=== PATIENT | male | born 1945 | race Caucasian/White ===

== ENCOUNTER 2018-03-10 23:04 | Observation (INO) | payer MEDICARE, BC ==
[2018-03-10 23:18] LABS: BASO % 0.3 % (0-6); EOS % 2.8 % (0-6); GRAN % 51.5 % (47-80); HEMOGLOBIN 13.3 gm/dl (14.0-18.0); LYMPH % 31.3 % (16-45); MEAN CELL VOLUME 97.5 fl (81-97); MEAN CORPUSCULAR HEMOGLOBIN 33.2 pg (27-33); MEAN CORPUSCULAR HGB CONC 34.1 g/dl (32-36); MEAN PLATELET VOLUME 10.7 fl (7.4-10.4); MONO % 14.1 % (0-9); PLATELET COUNT 293 K/uL (130-400); RED CELL DISTRIBUTION WIDTH 12.9 % (11.5-14.5); WHITE BLOOD COUNT W/O DIFF 7.4 K/uL (4.2-12.2)
--- NOTE | 2018-03-10 23:23 | Emergency Department Record ---
History of Present Illness - General Chief Complaint: Arrythmia/Palpitations Stated Complaint: IRREGULAR HEARTBEAT Time Seen by Provider: 03/10/18 23:06 Source: Patient Mode of Arrival: Ambulatory Limitations: No limitations - History of Present Illness Initial Comments: 72 yo male presents to ED for evaluation of rapid heart rate, reports history of atrial fibrillation. Patient reports that he does take Metoprolol for his rate control, denies any change in his medication. Patient reports shortness of breath symptoms, denies chest pain symptoms. Patient does take Eliquis for anticoagulation. MD Complaint: Irregular heart beat Onset/Timin -: Hour(s) Context: Occurred during exertion Arrythmia History: Atrial fibrillation, On anti-coagulants Associated Symptoms: Other Treatments Prior to Arrival: Other - Related Data Home Medications Medication Instructions Recorded Confirmed Last Taken Insulin Degludec [Tresiba 60 unit SQ DAILY 03/10/18 03/10/18 03/10/18 Flextouch U-100] Allergies Allergy/AdvReac Type Severity Reaction Status Date / Time codeine AdvReac CONSTIPATIO Verified 08/21/16 01:42 N Travel Screening - Travel/Exposure Within Last 30 Days Have you traveled within the last 30 days?: No - Travel Symptoms Symptom Screening: None Review of Systems Constitutional: Denies: Chills, Fever, Malaise, Night sweats Eyes: Denies: Eye discharge, Eye pain ENT: Denies: Congestion, Ear pain, Epistaxis Respiratory: Denies: Cough, Dyspnea Cardiovascular: Reports: Arrhythmia, Dyspnea on exertion, Palpitations. Denies : Chest pain, Edema Endocrine: Denies: Fatigue, Heat or cold intolerance Gastrointestinal: Denies: Abdominal pain, Constipation, Vomiting Genitourinary: Denies: Incontinence, Retention Musculoskeletal: Denies: Arthralgia, Back pain, Gout, Joint swelling Skin: Denies: Bruising, Change in color Neurological: Denies: Abnormal gait, Confusion, Headache, Seizure Psychiatric: Denies: Anxiety Hematological/Lymphatic: Denies: Anemia, Blood Clots Past Medical History - SOCIAL HISTORY Smoking Status: Never smoker Alcohol Use: None Drug Use: None - RESPIRATORY Hx Respiratory Disorders: No - CARDIOVASCULAR Hx Cardio Disorders: Yes Hx Hypertension: Yes Hx Irregular Heartbeat: Yes (A-Fib) - NEURO Hx Neuro Disorders: No - GI Hx GI Disorders: No - Hx Genitourinary Disorders: Yes Hx Prostate Problems: Yes (BPH) - ENDOCRINE Hx Endocrine Disorders: Yes Hx Diabetes: Yes (DM2) - MUSCULOSKELETAL Hx Musculoskeletal Disorders: Yes Hx Gout: Yes - PSYCH Hx Psych Problems: No - HEMATOLOGY/ONCOLOGY Hx Hematology/Oncology Disorders: No Family Medical History Any Significant Family History?: Yes Hx Cancer: Brother/Sister *Cancer Comment: Colon,Prostate Hx Diabetes: Mother Hx Heart Disease: Father Physical Exam - General General Appearance: Alert, Oriented x3, Cooperative, Mild distress Limitations: No limitations - Head Head exam: Atraumatic, Normocephalic, Normal inspection Head exam detail: negative: Abrasion, Contusion, Catherine's sign, General tenderness, Hematoma, Laceration - Eye Eye exam: Normal appearance. negative: Conjunctival injection, Periorbital swelling, Periorbital tenderness, Scleral icterus - ENT Ear exam: negative: Auricular hematoma, Auricular trauma Nasal Exam: negative: Active bleeding, Discharge, Dried blood, Foreign body Mouth exam: negative: Drooling, Laceration, Tongue elevation - Neck Neck exam: Normal inspection. negative: Meningismus, Tenderness - Respiratory Respiratory exam: Normal lung sounds bilaterally. negative: Rales, Respiratory distress, Rhonchi, Stridor - Cardiovascular Cardiovascular Exam: Irregular rhythm, Tachycardia - GI/Abdominal GI/Abdominal exam: Soft. negative: Rebound, Rigid, Tenderness - Rectal Rectal exam: Deferred - exam: Deferred - Extremities Extremities exam: Normal inspection. negative: Calf tenderness, Pedal edema, Tenderness - Back Back exam: Denies: CVA tenderness (R), CVA tenderness (L) - Neurological Neurological exam: Alert, Normal gait, Oriented X3 - Psychiatric Psychiatric exam: Normal affect, Normal mood - Skin Skin exam: Normal color. negative: Abrasion Type of lesion: negative: abrasion Course Vital Signs 03/10/18 23:06 Temperature 98.3 F Pulse Rate 156 H Respiratory 20 Rate Blood Pressure 133/105 - Reevaluation(s) Reevaluation #1: 03/10/18 23:23 EKG: Atrial fibrillation 147 IVCD, nonspecific ST-T wave changes NEW BBB compared with 02/23/16 Reevaluation #2: 03/10/18 23:36 Labs reviewed: Hgb 13.3 AG 18 BUN 29 Glucose 284 Labs are otherwise grossly unremarkable for an acute process. Cardizem infusing at 5 mg/hr, rate improved to the 90's on re-examination. Will admit for further evaluation and cardiology consultation in AM. Reevaluation #3: 03/11/18 06:51 Case was discussed with Dr. Hall, will accept admission at this time. Medical Decision Making - Lab Data Result diagrams: 03/10/18 23:10 03/10/18 23:10 Disposition Disposition: Admit Clinical Impression: Atrial fibrillation with RVR Disposition: Still a Patient at [facility] Decision to Admit: Admit from ER Decision to Admit Date: 03/10/18 Decision to Admit Time: 23:39 Condition: (2) Stable Time of Disposition: 23:39 Quality - Quality Measures Quality Measures: N/A - Blood Pressure Screening Does Patient Have Any of the Following: Active Dx of HTN Blood Pressure Classification: Hypertensive Reading Systolic Measurement: 133 Diastolic Measurement: 105 Screening for High Blood Pressure: Patient Exclusion, Hx of HTN [[id number]] First Hypertensive Follow-up Interventions: Referral to alternative/primary care provider.
[2018-03-10 23:26] LABS: BLOOD UREA NITROGEN 29 mg/dL (8-23); EST GLOMERULAR FILTRATION RATE > 60 mL/min
[2018-03-10 23:27] LABS: TOTAL PROTEIN 7.7 g/dL (6.6-8.7)
[2018-03-10 23:29] LABS: GLUCOSE,RANDOM 284 mg/dL (74-109)
[2018-03-10] MEDS ORDERED: DILTIAZEM HCL 125 MG in 0.9 % SODIUM CHLORIDE 100ML 100 ML IV SCH (23:30)
[2018-03-10 23:32] LABS: ALB/GLOB RATIO 1.3 (1.1-1.8); ALBUMIN 4.4 g/dL (4.0-5.0); ALKALINE PHOSPHATASE 63 U/L (40-129); ALT/SGPT 21 U/L (<41); AST/SGOT 19 U/L (10.0-50.0)
[2018-03-10] MEDS ORDERED: 0.9 % SODIUM CHLORIDE 1000ML 1,000 ML IV PRN (23:44)
[2018-03-11] MEDS ORDERED: POLYVINYL ALCOHOL OPTH OPTH PRN (02:55)
[2018-03-11] MEDS ORDERED: METFORMIN 500 MG TABLET PO SCH (08:00)
--- NOTE | 2018-03-11 09:28 | History & Physical ---
History of Present Illness - Date of Service Date of Service for History & Physical: 03/11/18 - History of Present Illness Admitting Diagnosis: Atrial Fibrillation with RVR. Hyperglycemia History of Present Illness: Mr. Sandhu is a 72 y/o male with chronic atrial fibrillation here with complaint of tachycardia and intermittent palpitations over the past few days. The patient says that his heart rate is usually in the low 100s but he noticed that it jumped up to the 150s. He uses a home BP monitor and says that several readings showed a high heart rate. He is on metoprolol and anticoagulated with Eliquis which he says he takes daily. He has not had any change in dosing or additions to his medications in recent days. The patient denies, lightheadedness , chest pain, shortness of breath of fainting spells. On arrival to the ED the patient is noted to be in atrial fibrillation on monitor with a rate of around 130 and ECG showing atrial fibrillation with a rate of 150 and Qtc prolongation. The patient was started on Cardizem drip at 5mL/hr and returned to normal sinus. Cardiology was consulted and the patient was admitted for evaluation. Travel Screening - Travel/Exposure Within Last 30 Days Have you traveled within the last 30 days?: No - Travel/Exposure Within Last Year Have you traveled outside the [place] in the last year?: No - Additonal Travel Details Have you been exposed to anyone with a communicable illness?: No - Travel Symptoms Symptom Screening: None Review of Systems Constitutional: Denies: Chills, Fever, Malaise, Night sweats Eyes: Denies: Eye discharge, Eye pain ENT: Denies: Congestion, Ear pain, Epistaxis Respiratory: Denies: Cough, Dyspnea Cardiovascular: Reports: Arrhythmia, Dyspnea on exertion, Palpitations. Denies : Chest pain, Edema Endocrine: Denies: Fatigue, Heat or cold intolerance Gastrointestinal: Denies: Abdominal pain, Constipation, Vomiting Genitourinary: Denies: Incontinence, Retention Musculoskeletal: Denies: Arthralgia, Back pain, Gout, Joint swelling Skin: Denies: Bruising, Change in color Neurological: Denies: Abnormal gait, Confusion, Headache, Seizure Psychiatric: Denies: Anxiety Hematological/Lymphatic: Denies: Anemia, Blood Clots Past Medical History - SOCIAL HISTORY Smoking Status: Never smoker Alcohol Use: None Drug Use: None - RESPIRATORY Hx Respiratory Disorders: No - CARDIOVASCULAR Hx Cardio Disorders: Yes Hx Hypertension: Yes Hx Irregular Heartbeat: Yes (A-Fib) - NEURO Hx Neuro Disorders: No - GI Hx GI Disorders: No - Hx Genitourinary Disorders: Yes Hx Prostate Problems: Yes (BPH) - ENDOCRINE Hx Endocrine Disorders: Yes Hx Diabetes: Yes (DM2) - MUSCULOSKELETAL Hx Musculoskeletal Disorders: Yes Hx Gout: Yes - PSYCH Hx Psych Problems: No - HEMATOLOGY/ONCOLOGY Hx Hematology/Oncology Disorders: No Family Medical History Any Significant Family History?: Yes Hx Cancer: Brother/Sister *Cancer Comment: Colon,Prostate Hx Diabetes: Mother Hx Heart Disease: Father H&P Meds/Allergies - Allergies Allergies: Allergies Allergy/AdvReac Type Severity Reaction Status Date / Time codeine AdvReac CONSTIPATIO Verified 08/21/16 01:42 N - Home Medications Home Medications Medication Instructions Recorded Confirmed Last Taken Insulin Degludec [Tresiba 60 unit SQ DAILY 03/10/18 03/10/18 03/10/18 Flextouch U-100] - Active Medications Active Medications: Current Medications Allopurinol (Zyloprim) 300 mg PO DAILY [facility] Apixaban (Eliquis) 5 mg PO BID [facility] Artificial Tears (Akwa Tears) 1 drop OPTH Q1H PRN PRN Reason: Dry Eye Last Admin: 03/11/18 03:16 Dose: 1 drop Atorvastatin Calcium (Lipitor) 80 mg PO DAILY [facility] Diltiazem HCl 125 mg/ Sodium (Chloride) 125 mls @ 5 mls/hr IV TITRATE [facility]ANE; Protocol Last Titration: 03/11/18 08:36 Dose: Infused Sodium Chloride () 1,000 mls @ 100 mls/hr IV .Q10H PRN PRN Reason: LARGE VOLUME IV Last Admin: 03/10/18 23:30 Dose: 100 mls/hr Metformin HCl (Glucophage Ir) 1,000 mg PO BIDWM [facility]ANE Last Admin: 03/11/18 08:15 Dose: 1,000 mg Metoprolol Tartrate (Lopressor) 100 mg PO BID [facility] Non-Formulary Medication (Captopril/Hydrochlorothiazide [Captopril-Hctz 25-15 Mg Tablet]) 1 tab PO DAILY [facility] Non-Formulary Medication (Fenofibrate [Fenofibrate]) 160 mg PO [facility] Non-Formulary Medication (Fexofenadine Hcl [Elly Allergy]) 180 mg PO [facility] Non-Formulary Medication (Insulin Degludec [Tresiba Flextouch U-100]) 60 unit SQ [facility] Physical Exam - Vital Signs Vital Signs: Vital Signs - Last 24 Hrs Temp Pulse Pulse Pulse Resp BP BP 03/11/18 06:20 98.1 F 86 16 110/68 03/11/18 05:30 98.5 F 73 17 103/54 03/11/18 04:30 104 H 16 123/61 03/11/18 03:30 97.9 F 116 H 16 128/69 03/11/18 03:17 98.1 F 129 H 16 128/71 03/11/18 02:05 119 H 18 119/66 03/11/18 01:15 96 H 16 112/85 03/11/18 00:57 97 H 16 03/11/18 00:20 98.5 F 117 H 16 130/76 03/11/18 00:02 97 H 20 119/79 03/10/18 23:51 97 H 22 03/10/18 23:32 129 H 24 124/95 03/10/18 23:15 136 H 24 136/101 03/10/18 23:06 98.3 F 156 H 20 133/105 Pulse Ox 03/11/18 06:20 96 03/11/18 05:30 97 03/11/18 04:30 95 03/11/18 03:30 96 03/11/18 03:17 96 03/11/18 02:05 03/11/18 01:15 03/11/18 00:57 03/11/18 00:20 96 03/11/18 00:02 96 03/10/18 23:51 96 03/10/18 23:32 95 03/10/18 23:15 95 03/10/18 23:06 - General General Appearance: Alert, Oriented x3, Cooperative, Mild distress Limitations: No limitations - Head Head exam: Atraumatic, Normocephalic, Normal inspection Head exam detail: negative: Abrasion, Contusion, Catherine's sign, General tenderness, Hematoma, Laceration - Eye Eye exam: Normal appearance. negative: Conjunctival injection, Periorbital swelling, Periorbital tenderness, Scleral icterus - ENT Ear exam: negative: Auricular hematoma, Auricular trauma Nasal Exam: negative: Active bleeding, Discharge, Dried blood, Foreign body Mouth exam: negative: Drooling, Laceration, Tongue elevation - Neck Neck exam: Normal inspection. negative: Meningismus, Tenderness - Respiratory Respiratory exam: Normal lung sounds bilaterally. negative: Rales, Respiratory distress, Rhonchi, Stridor - Cardiovascular Cardiovascular Exam: Irregular rhythm, Tachycardia Peripheral Pulses: 3+: Radial (R), Radial (L), Dorsalis Pedis (R), Dorsalis Pedis (L) - GI/Abdominal GI/Abdominal exam: Soft. negative: Rebound, Rigid, Tenderness - Rectal Rectal exam: Deferred - exam: Deferred - Extremities Extremities exam: Normal inspection. negative: Calf tenderness, Pedal edema, Tenderness - Back Back exam: Denies: CVA tenderness (R), CVA tenderness (L) - Neurological Neurological exam: Alert, Normal gait, Oriented X3 - Psychiatric Psychiatric exam: Normal affect, Normal mood - Skin Skin exam: Normal color. negative: Abrasion Type of lesion: negative: abrasion Results - Labs Result Diagrams: 03/10/18 23:10 03/10/18 23:10 Labs Last 24 Hours: Laboratory Results - last 24 hr 03/10/18 03/10/18 03/11/18 23:10 23:10 08:27 WBC 7.4 RBC 4.00 L Hgb 13.3 L Hct 39.0 L MCV 97.5 H MCH 33.2 H MCHC 34.1 RDW 12.9 Plt Count 293 MPV 10.7 H Gran % 51.5 Lymphocytes % 31.3 Monocytes % 14.1 H Eosinophils % 2.8 Basophils % 0.3 Sodium 143 Potassium 4.0 Chloride 99 Carbon Dioxide 26.0 Anion Gap 18.0 H BUN 29 H Creatinine 1.0 Estimated GFR > 60 POC Glucose 163 H Random Glucose 284 H Calcium 9.4 Total Bilirubin 0.20 AST 19 ALT 21 Alkaline Phosphatase 63 Troponin T < 0.010 Total Protein 7.7 Albumin 4.4 Globulin 3.3 Albumin/Globulin Ratio 1.3 03/11/18 08:28 WBC RBC Hgb Hct MCV MCH MCHC RDW Plt Count MPV Gran % Lymphocytes % Monocytes % Eosinophils % Basophils % Sodium Potassium Chloride Carbon Dioxide Anion Gap BUN Creatinine Estimated GFR POC Glucose Random Glucose Calcium Total Bilirubin AST ALT Alkaline Phosphatase Troponin T < 0.010 Total Protein Albumin Globulin Albumin/Globulin Ratio VTE H&P Assessment - Risk for VTE Risk for VTE: Yes Risk Level: High Risk Assessment Date: 03/11/18 Risk Assessment Time: 09:32 VTE Orders Placed or Will Be Placed: Yes Plan - Inpatient Certification Inpatient Certification: Admit to inpatient care: Based on my medical assessment, after consideration of patient's risk factors (age, co-morbidities and patient presenting symptoms and acuity), I expect that this patient will remain in the hospital greater than or equal to two midnights and that the services needed warrant inpatient care because: Patient Risk Factors: [] Estimated length of stay: [] The patient may reasonably be expected to be discharged or transferred to a hospital within 96 hours after admission to [facility]. Services needed: [] Post hospital care (if known): [] I certify that my determination is in accordance with my understanding of Medicare requirements for reasonable and necessary inpatient services. - Detailed Diagnosis and Plan (1) Atrial fibrillation with RVR Current Visit: Yes Status: Acute Base Code: I48.91 - UNSPECIFIED ATRIAL FIBRILLATION Comment: 04/03/18: - ECG - new LBBB, irregular rhythm, rate > 150, prolonged Qtc. Troponins negative x 2 - as per cardiology last echo 2016 - unsure of findings. - discontinue Cardizem drip and increase dose of Lopressor to 150mg daily, continue cardiac monitoring. - cont Eliquis as per home dose. Chadsvasc2 > 4 - Cardiology consulted for further recommendations. (2) Diabetes mellitus, type II Current Visit: Yes Status: Acute Base Code: E11.9 - TYPE 2 DIABETES MELLITUS WITHOUT COMPLICATIONS Comment: 03/11/18: serum glucose 284 -- 163 POC. - resume home doses of Tresiba and Metformin 1000mg BID. - accuchecks AcHs - ADA diabetic diet (3) Hyperlipidemia LDL goal <100 Current Visit: Yes Status: Acute Base Code: E78.5 - HYPERLIPIDEMIA, UNSPECIFIED Comment: 03/11/18: resume patient's Lipitor and Fenofibrate. (4) DVT prophylaxis Current Visit: Yes Status: Acute Base Code: [id number] - Comment: 03/11/18: anticoagulated on Eliquis as result of a fib w/ high CHADsVasc 2. (5) Full code status Current Visit: Yes Status: Acute Base Code: Z78.9 - OTHER SPECIFIED HEALTH STATUS Comment: 03/11/18: FULL CODE - Disposition Discharge home with Cardiology follow up for stress and repeat 2D echo.
[2018-03-11] MEDS ORDERED: FENOFIBRATE 160 MG PO SCH (10:00)
[2018-03-11] MEDS ORDERED: ATORVASTATIN 20 MG TABLET PO SCH (10:00)
[2018-03-11] MEDS ORDERED: HYDROCHLOROTHIAZIDE PO SCH (10:00)
[2018-03-11] MEDS ORDERED: CAPTOPRIL PO SCH (10:00)
[2018-03-11] MEDS ORDERED: ALLOPURINOL 100 MG TAB PO SCH (10:00)
[2018-03-11] MEDS ORDERED: APIXABAN 5MG TABLET PO SCH (10:00)
[2018-03-11] MEDS ORDERED: [UNRECOGNIZED DRUG - REMARK] PO SCH (10:00)
[2018-03-11] MEDS ORDERED: [UNRECOGNIZED DRUG - OTHER] PO SCH (10:00)
[2018-03-11] MEDS ORDERED: INSULIN DEGLUDEC 60 UNIT SQ SCH (10:00)
[2018-03-11] MEDS ORDERED: METOPROLOL TART 50 MG TABLET PO SCH (10:00)
--- NOTE | 2018-03-11 10:04 | Discharge Summary ---
Providers Discharge Summary Date: 03/11/18 Date of admission: 03/11/18 00:11 Attending physician: CHELA LANDA Primary care physician: MALGORZATA HERNANDEZ D.O. Consults: Consult Orders 03/11/18 00:05 Consult - Cardiology NOW Consulting Provider: Ranjith Duong Physician Instructions: Reason For Exam: atrial fibrillation Does pt have current outpatient receptionist?: TCI Physical Exam - Vital Signs Vital Signs: Vital Signs - Last 24 Hrs Temp Pulse Pulse Pulse Resp BP BP 03/11/18 06:20 98.1 F 86 16 110/68 03/11/18 05:30 98.5 F 73 17 103/54 03/11/18 04:30 104 H 16 123/61 03/11/18 03:30 97.9 F 116 H 16 128/69 03/11/18 03:17 98.1 F 129 H 16 128/71 03/11/18 02:05 119 H 18 119/66 03/11/18 01:15 96 H 16 112/85 03/11/18 00:57 97 H 16 03/11/18 00:20 98.5 F 117 H 16 130/76 03/11/18 00:02 97 H 20 119/79 03/10/18 23:51 97 H 22 03/10/18 23:32 129 H 24 124/95 03/10/18 23:15 136 H 24 136/101 03/10/18 23:06 98.3 F 156 H 20 133/105 Pulse Ox 03/11/18 06:20 96 03/11/18 05:30 97 03/11/18 04:30 95 03/11/18 03:30 96 03/11/18 03:17 96 03/11/18 02:05 03/11/18 01:15 03/11/18 00:57 03/11/18 00:20 96 03/11/18 00:02 96 03/10/18 23:51 96 03/10/18 23:32 95 03/10/18 23:15 95 03/10/18 23:06 - General General Appearance: Alert, Oriented x3, Cooperative, Mild distress Limitations: No limitations - Head Head exam: Atraumatic, Normocephalic, Normal inspection Head exam detail: negative: Abrasion, Contusion, Catherine's sign, General tenderness, Hematoma, Laceration - Eye Eye exam: Normal appearance. negative: Conjunctival injection, Periorbital swelling, Periorbital tenderness, Scleral icterus - ENT Ear exam: negative: Auricular hematoma, Auricular trauma Nasal Exam: negative: Active bleeding, Discharge, Dried blood, Foreign body Mouth exam: negative: Drooling, Laceration, Tongue elevation - Neck Neck exam: Normal inspection. negative: Meningismus, Tenderness - Respiratory Respiratory exam: Normal lung sounds bilaterally. negative: Rales, Respiratory distress, Rhonchi, Stridor - Cardiovascular Cardiovascular Exam: Irregular rhythm, Tachycardia Peripheral Pulses: 3+: Radial (R), Radial (L), Dorsalis Pedis (R), Dorsalis Pedis (L) - GI/Abdominal GI/Abdominal exam: Soft. negative: Rebound, Rigid, Tenderness - Rectal Rectal exam: Deferred - exam: Deferred - Extremities Extremities exam: Normal inspection. negative: Calf tenderness, Pedal edema, Tenderness - Back Back exam: Denies: CVA tenderness (R), CVA tenderness (L) - Neurological Neurological exam: Alert, Normal gait, Oriented X3 - Psychiatric Psychiatric exam: Normal affect, Normal mood - Skin Skin exam: Normal color. negative: Abrasion Type of lesion: negative: abrasion Hospitalization - Hospitalization Admission Diagnosis: Atrial Fibrillation with RVR. Hyperglycemia - Problem List/Discharge Diagnosis (1) Atrial fibrillation with RVR Current Visit: Yes Status: Acute Base Code: I48.91 - UNSPECIFIED ATRIAL FIBRILLATION Comment: 04/03/18: - ECG - new LBBB, irregular rhythm, rate > 150, prolonged Qtc. Troponins negative x 2 - as per cardiology last echo 2016 - unsure of findings. - discontinue Cardizem drip and increase dose of Lopressor to 150mg daily, continue cardiac monitoring. - cont Eliquis as per home dose. Chadsvasc2 > 4 - Cardiology consulted for further recommendations. (2) Diabetes mellitus, type II Current Visit: Yes Status: Acute Base Code: E11.9 - TYPE 2 DIABETES MELLITUS WITHOUT COMPLICATIONS Comment: 03/11/18: serum glucose 284 -- 163 POC. - resume home doses of Tresiba and Metformin 1000mg BID. - accuchecks AcHs - ADA diabetic diet (3) Hyperlipidemia LDL goal <100 Current Visit: Yes Status: Acute Base Code: E78.5 - HYPERLIPIDEMIA, UNSPECIFIED Comment: 03/11/18: resume patient's Lipitor and Fenofibrate. (4) DVT prophylaxis Current Visit: Yes Status: Acute Base Code: [id number] - Comment: 03/11/18: anticoagulated on Eliquis as result of a fib w/ high CHADsVasc 2. (5) Full code status Current Visit: Yes Status: Acute Base Code: Z78.9 - OTHER SPECIFIED HEALTH STATUS Comment: 03/11/18: FULL CODE - Disposition Discharge home with Cardiology follow up for stress and repeat 2D echo. - Hospitalization Course Hospital Course: Mr. Hsu is a 72 y/o male with chronic atrial fibrillation here with complaint of tachycardia and intermittent palpitations over the past few days. The patient says that his heart rate is usually in the low 100s but he noticed that it jumped up to the 150s. He uses a home BP monitor and says that several readings showed a high heart rate. He is on metoprolol and anticoagulated with Eliquis which he says he takes daily. He has not had any change in dosing or additions to his medications in recent days. The patient denies, lightheadedness , chest pain, shortness of breath of fainting spells. On arrival to the ED the patient is noted to be in atrial fibrillation on monitor with a rate of around 130 and ECG showing atrial fibrillation with a rate of 150 and Qtc prolongation. The patient was started on Cardizem drip at 5mL/hr and returned to normal sinus. Cardiology was consulted and the patient was admitted for evaluation. Addendum: The patient has been evaluated by Cardiology who recommends Betapce but the patient is not willing to stay to be monitored as we start this new medication. He is currently stable on monitor and outpatient workup will be arranged. He will have a 2D echo and stress test for evaluation of LBBB. Procedures: Cardiology Procedures 03/10/18 23:07 Body Component Engineer .Continuous EKG NOW Abnormal Labs: Abnormal Lab Results 03/10/18 03/10/18 03/11/18 Range/Units 23:10 23:10 08:27 RBC 4.00 L (4.40-5.70) M/uL Hgb 13.3 L (14.0-18.0) gm/dl Hct 39.0 L (42.0-52.0) % MCV 97.5 H (81-97) fl MCH 33.2 H (27-33) pg MPV 10.7 H (7.4-10.4) fl Monocytes % 14.1 H (0-9) % Anion Gap 18.0 H (7-16) BUN 29 H (8-23) mg/dL POC Glucose 163 H (70-110) mg/dL Random Glucose 284 H (74-109) mg/dL Condition at Discharge: (2) Stable Discharge Medications - Discharge Medications Home Medications: Ambulatory Orders Allopurinol 300 mg PO DAILY 08/21/16 [Last Taken Unknown] Apixaban [Eliquis] 5 mg PO BID 08/21/16 [Last Taken Unknown] Captopril/Hydrochlorothiazide [Captopril-Hctz 25-15 mg Tablet] 1 tab PO DAILY [Last Taken Unknown] Fenofibrate 160 mg PO DAILY 08/21/16 [Last Taken Unknown] Fexofenadine HCl [Elly Allergy] 180 mg PO DAILY 08/21/16 [Last Taken Unknown] Metformin HCl 1,000 mg PO BID 08/21/16 [Last Taken Unknown] Metoprolol Tartrate 100 mg PO BID 08/21/16 [Last Taken Unknown] Rosuvastatin Calcium [Crestor] 20 mg PO DAILY 08/21/16 [Last Taken Unknown] Insulin Degludec [Tresiba Flextouch U-100] 60 unit SQ DAILY 03/10/18 [Last Taken 03/10/18] Metoprolol Tartrate [Lopressor] 100 mg PO BID tablet 03/11/18 [Last Taken Unknown] Polyvinyl Alcohol [Akwa Tears] 1 drop OPTH Q1H PRN btl 03/11/18 [Last Taken Unknown] Discharge Plan - Discharge Instructions Activity at Discharge: Increase Activity as Tolerated Diet at Discharge: Diabetic Diet, Low Fat, Low Cholesterol, Low Salt Diet Additional Instructions: Increase Metoprolol 100mg to 150mg twice daily (1 and 1/2 tabs twice daily.) Follow up with Dr. Duong in 2 weeks for 2D echo and stress test Return to ED if there is chest pain, shortness of breath or return of previous symptoms. Quality Measures - Quality Measures Quality Measures: Atrial Fibrillation & Atrial Flutter: Chronic Anticoagulation Therapy, Advance Directives, Documentation of Current Medications in Medical Record, Elder Maltreatment Screen and Follow-Up Plan, Screening for High Blood Pressure and F/U Documented - Current Medications Quality Measure: Measure #130: Documentation of Current Medications Documentation of Current Medications: <Current Medications Documented/Reviewed> [G1552] - Blood Pressure Screening Quality Measure: Screening for High Blood Pressure and Follow-Up Documented Does Patient Have Any of the Following: Active Dx of HTN Blood Pressure Classification: Hypertensive Reading Systolic Measurement: 133 Diastolic Measurement: 105 Screening for High Blood Pressure: Patient Exclusion, Hx of HTN [G94] - Atrial Fibrillation and Atrial Flutter Quality Measure: Atrial Fibrillation & Atrial Flutter: Chronic Anticoagulation Therapy Does Patient Have Any of the Following: No CHADS2 Risk Stratification: Age 75 or Greater, Hypertension, Diabetes Mellitus Risk Stratification Summary: One or more high risk factors OR more than one moderate risk factor exists. [G8972] Anticoagulation Therapy: <Oral anticoagulant Prescribed> [G8967] - Advance Directives Quality Measure: Measure #47: Care Plan Advance Directives Established: No Advance Directives Information Provided To Patient: No Advance Directives on File: No Living Will: No Power of Signal Circuit Designer: Yes Power of Signal Circuit Designer Name: SIMÓN HSU Advance Care Planning: <Care Plan/Decision Maker Not Decided; Discussed & Documented> [1124F] - Elder Abuse Suspicion Index Screening: Elder Abuse Suspicion Index Screening Rely on people for bathing, dressing, shopping, banking, etc: No Prevented from getting food, clothes, medication, etc: No Made to feel shamed or threatened by someone: No Forced to sign papers or use money against will: No Feel afraid, touched in ways not wanted or hurt physically: No Poor eye contact, withdrawn, malnourished, cuts or bruises: No Screening Result: Negative result EASI Reference Information: Caitlyn BARGER, Michael C, Sandhya D, Annelise Perla.Development and validation of a tool to assist physicians identification of elder abuse: The Elder Abuse Suspicion Index (EASI ). Journal of Elder Abuse and Neglect, 2008; 20 (3): 276-300. - Elder Maltreatment Screen Quality Measures: Elder Maltreatment Screen and Follow-Up Plan Elder Maltreatment Screen: <Negative, No Follow-Up Plan Required> [G8734]
--- NOTE | 2018-03-12 11:00 | Medical Records Consult ---
DATE OF CONSULTATION: 03/11/2018 CHIEF COMPLAINT: Atrial fibrillation. HISTORY OF PRESENT ILLNESS: The patient is a 72-year-old male who last night at about 8 p.m. noticed the onset of rapid heart rate associated with palpitations, feeling somewhat groggy. He came into the emergency room and he was in rapid atrial fibrillation. Admitted. He was placed on IV Cardizem overnight. It controlled the rate. He was taken off this morning and his heart rate is down to about 100 but he remains in atrial fibrillation. EKG shows a left bundle-branch block which is a new finding from previous EKGs done in our office, the last being after stress test in 2013. He went 8 METS, and that was normal. EKG was normal. He has had paroxysmal atrial fibrillation over the last couple of years, none requiring hospitalization and it had been transient and short-lived. He is on 100 mg of metoprolol b.i.d. for atrial fibrillation but also for hypertension and Eliquis 5 mg b.i.d. for stroke prevention. He has had Holter monitors in the past which have shown very infrequent episodes of atrial fibrillation. He denies any recent PND or orthopnea, any chest pain. He feels back to normal this morning and is insistent on going home. He has as mentioned above history of hypertension, diabetes mellitus, also has dyslipidemia, reflux, and generalized arthritis including gout. He is a former smoker. MEDICATIONS: According to our records prior to admission: 1. Captopril/hydrochlorothiazide 25/15 once a day. 2. Crestor 20 mg a day. 3. Eliquis 5 mg b.i.d. 4. Fenofibrate 160 mg daily. 5. He was on metformin 1000 mg b.i.d. 6. Tarceva as directed. 7. Metoprolol 100 mg b.i.d. 8. Zyloprim 300 mg per day. ALLERGIES: CODEINE. PAST MEDICAL HISTORY: See HPI. Cardiac history: None other than atrial fibrillation. Infectious history: Mumps, measles, chickenpox. Trauma: No history of previous trauma. PAST SURGICAL HISTORY: Nasal surgery, calcium deposits removed from tonsils, neck surgery. FAMILY HISTORY: Father had CAD. Mother had diabetes mellitus. Brother has prostate cancer. Another brother has congestive heart failure. One sister has history of breast cancer and the other colon cancer. REVIEW OF SYSTEMS: A 10-point review of systems reviewed and confirmed. Pertinent positives in HPI, otherwise negative. PHYSICAL EXAMINATION: VITAL SIGNS: Temp 98.1, heart rate approximately 100, blood pressure 110/68. GENERAL: An obese white male lying in bed in no acute distress. HEAD, EYES, EARS, NOSE, THROAT: Normocephalic and atraumatic. Lids, conjunctivae, and sclerae are clear. Pupils are equal, round, and reactive to light and accommodation. EOMs are intact. Buccal mucosa is pink and moist. Uvula midline without retraction. NECK: Thick. No bruits, thyromegaly, lymphadenopathy noted. CHEST: Increased AP diameter. Clear to auscultation and percussion. CARDIOVASCULAR: Very distant heart sounds. Irregular regular rhythm. No murmurs, gallops, lifts, or heaves are noted. PMI is palpable. ABDOMEN: Soft, nontender. EXTREMITIES: Warm. Pulses 2+/4 upper and lower extremities. There is no clubbing, cyanosis, or edema. NEUROLOGIC: Cranial nerves II-XII intact. Sensation is intact. MUSCULOSKELETAL: No joint crepitus or swelling. PSYCHIATRIC: Mood is normal. Oriented to person, place, and time. LABORATORY DATA: Enzymes are negative for infarction. IMPRESSION: 1. Persistent atrial fibrillation. 2. New-onset left bundle-branch block. 3. Hypertension. 4. Diabetes mellitus. 5. Obesity. 6. Dyslipidemia. 7. Question sleep apnea. PLAN: Recommend that the patient be switched from metoprolol to Betapace to try to convert him but he does not want to stay in the hospital the requisite 48 hours. Therefore, I will increase his metoprolol to 1-1/2 tablets b.i.d. starting tomorrow. Today we will give him 2 tablets in the morning. He will take 1 tablet at night. He obviously will remain on Eliquis. I will arrange for an outpatient echocardiogram and eventually a Lexiscan Cardiolite study. He was advised to return to the emergency room if his symptoms should deteriorate. I discussed this with the attending physician, Andreas Hall MD. CHANELL
== END 2018-03-11 13:45 | disposition home or self-care (01) ==
LOC: ER 23:04 → OBSVTOIN 03-11 00:11 → MEDSURG 03-11 00:11 → INTOOBSV 03-11 00:11
PROVIDERS: ADMIT Internal Medicine; ATTEND Internal Medicine
DX: I48.91 Unspecified atrial fibrillation (principal); Z79.01 Long term (current) use of anticoagulants; I10 Essential (primary) hypertension; E11.9 Type 2 diabetes mellitus without complications; Z79.4 Long term (current) use of insulin; R73.9 Hyperglycemia, unspecified; N40.0 Benign prostatic hyperplasia without lower urinary tract symptoms
CPT/HCPCS: 99285 ×2; 96365; 85025; 80053; 36416; 82948; 84484 ×2; 93005; 93010; G0378; J3490

== ENCOUNTER 2018-04-20 17:21 | Emergency (ER) | payer MEDICARE, BC ==
--- NOTE | 2018-04-20 17:38 | Emergency Department Record ---
History of Present Illness - General Chief Complaint: Shortness of breath Stated Complaint: BLOOD CLOTS Time Seen by Provider: 04/20/18 17:31 Source: Patient, Family Mode of Arrival: Wheelchair Limitations: No limitations - History of Present Illness Initial Comments: 72 yo male presents from radiology after an outpatient CTA of the chest demonstrated pulmonary emboli. He states he noted feeling short of breath that was significantly different than his baseline yesterday at 4pm. He saw his PCP today. An outpatient CTA demonstrated a few scattered small pulmonary emboli in the right lower lobar area. The PCP directed the patient to the ED and requested transfer to [facility] for new dyspnea and pulmonary emboli. He denies history of PE or DVT in the past. He is on Eliquis BID but did not take any today. Last dose was yesterday. His business analysis consultant is Dr Duong. His PCP is Dr Galvan. He takes the Eliquis for atrial fibrillation. He has had some leg swelling. He is schedule Friday for a stress test and an ECHO with Dr Ad BUCHANAN Complaint: Shortness of breath Onset/Timin -: Days(s) Severity: Moderate Consistency: Constant Improves With: Nothing Worsens With: Nothing Context: Other Associated Symptoms: Cough Treatments Prior to Arrival: None - Related Data Home Oxygen Therapy: No Previous Rx's Medication Instructions Recorded Metoprolol Tartrate [Lopressor] 100 mg PO BID tablet 03/11/18 Polyvinyl Alcohol [Akwa Tears] 1 drop OPTH Q1H PRN btl 03/11/18 Allergies Allergy/AdvReac Type Severity Reaction Status Date / Time codeine AdvReac CONSTIPATIO Verified 04/20/18 17:26 N Travel Screening - Travel/Exposure Within Last 30 Days Have you traveled within the last 30 days?: No Review of Systems Constitutional: Denies: Chills, Fever, Malaise, Weakness Eyes: Denies: Eye discharge ENT: Denies: Congestion, Throat pain Respiratory: Reports: Dyspnea. Denies: Cough, Hemoptysis, Stridor, Wheezes Cardiovascular: Reports: Dyspnea on exertion, Edema. Denies: Chest pain, Palpitations, Syncope Endocrine: Denies: Fatigue, Polydipsia, Polyuria Gastrointestinal: Denies: Abdominal pain, Diarrhea, Nausea, Vomiting Genitourinary: Denies: Dysuria, Frequency, Hematuria Musculoskeletal: Denies: Arthralgia, Back pain, Joint swelling, Myalgia Skin: Denies: Bruising, Change in color, Rash Neurological: Denies: Headache, Numbness, Weakness Psychiatric: Denies: Anxiety Hematological/Lymphatic: Denies: Easy bleeding, Easy bruising, Swollen glands Past Medical History - SOCIAL HISTORY Smoking Status: Never smoker Alcohol Use: None Drug Use: None - RESPIRATORY Hx Respiratory Disorders: Yes Comment:: allergies - CARDIOVASCULAR Hx Cardio Disorders: Yes Hx Hypertension: Yes Hx Irregular Heartbeat: Yes (A-Fib) - NEURO Hx Neuro Disorders: No - GI Hx GI Disorders: No - Hx Genitourinary Disorders: Yes Hx Prostate Problems: Yes (BPH) - ENDOCRINE Hx Endocrine Disorders: Yes Hx Diabetes: Yes (DM2) - MUSCULOSKELETAL Hx Musculoskeletal Disorders: Yes Hx Gout: Yes - PSYCH Hx Psych Problems: No - HEMATOLOGY/ONCOLOGY Hx Hematology/Oncology Disorders: No Family Medical History Any Significant Family History?: Yes Hx Cancer: Brother/Sister *Cancer Comment: Colon,Prostate Hx Diabetes: Mother Hx Heart Disease: Father Physical Exam - General General Appearance: Alert, Oriented x3, Cooperative, No acute distress Limitations: No limitations - Head Head exam: Atraumatic, Normal inspection - Eye Eye exam: Normal appearance. negative: Conjunctival injection, Scleral icterus - ENT ENT exam: Normal exam, Mucous membranes moist Ear exam: Normal external inspection Nasal Exam: Normal inspection Mouth exam: Normal external inspection - Neck Neck exam: Normal inspection - Respiratory Respiratory exam: Decreased breath sounds. negative: Normal lung sounds bilaterally, Prolonged expiratory, Respiratory distress, Wheezes - Cardiovascular Cardiovascular Exam: Irregular rhythm, Tachycardia Peripheral Pulses: 2+: Radial (R), Radial (L) - GI/Abdominal GI/Abdominal exam: Soft. negative: Tenderness - Rectal Rectal exam: Deferred - exam: Deferred - Extremities Extremities exam: Pedal edema (Right greater than left) - Neurological Neurological exam: Alert, Oriented X3 - Psychiatric Psychiatric exam: Normal affect, Normal mood - Skin Skin exam: Dry, Intact, Normal color, Warm Course Vital Signs 04/20/18 17:23 Temperature 99.0 F Pulse Rate 104 H Respiratory 22 Rate Blood Pressure 150/75 Pulse Ox 95 - Reevaluation(s) Reevaluation #1: EMR reviewed. Patient was admitted for Afib in March and seen in the hospital by Dr Duong in consultation. 04/20/18 17:42 EKG sinus tachycardia rate is 100, intervals GA 220, Qtc 457, axis Left, no acute ST changes. 04/20/18 18:43 The CBC, CMP were negative The Troponin is negative The BNP is 623 04/20/18 18:57 The patient's business analysis consultant is at [facility] (Dr Duong) His PCP requests transfer to [facility] 04/20/18 19:[address] Roman He accepts the patient for further work up of the dyspea, PE,cardiology consultation given Dr Duong is his business analysis consultant and has an ECHO and stress test planned already. Medical Decision Making - Lab Data Result diagrams: 04/20/18 17:35 04/20/18 17:35 Disposition Disposition: Transfer Clinical Impression: Atrial fibrillation with RVR, Pulmonary emboli Disposition: Acute Care Hospital Transfer Transfer To: [facility] Reason For Transfer: Dyspnea, PE's Accepting Physician: Jessie Time Discussed w/Accepting Physician: 19:24 Condition: (2) Stable Forms: Patient Portal Access Time of Disposition: 19:24 Quality - Quality Measures Quality Measures: N/A - Blood Pressure Screening Does Patient Have Any of the Following: Active Dx of HTN Blood Pressure Classification: Hypertensive Reading Systolic Measurement: 150 Diastolic Measurement: 75 Screening for High Blood Pressure: Patient Exclusion, Hx of HTN [G9744]
[2018-04-20] MEDS: HEPARIN SODIUM 1000 UNIT/1 ML 10ML VIAL IVP ONE (17:39)
[2018-04-20] MEDS: HEPARIN SODIUM/D5W 25,000 UNITS/500 ML BAG IV SCH (17:39)
[2018-04-20 17:58] LABS: BASO % 0.1 % (0-6); GRAN % 79.7 % (47-80); HEMATOCRIT 42.3 % (42.0-52.0); HEMOGLOBIN 14.1 gm/dl (14.0-18.0); LYMPH % 7.4 % (16-45); MEAN CELL VOLUME 96.6 fl (81-97); MEAN CORPUSCULAR HGB CONC 33.3 g/dl (32-36); MEAN PLATELET VOLUME 10.8 fl (7.4-10.4); MONO % 11.8 % (0-9); PLATELET COUNT 278 K/uL (130-400); RED BLOOD COUNT 4.38 M/uL (4.40-5.70); RED CELL DISTRIBUTION WIDTH 12.9 % (11.5-14.5); WHITE BLOOD COUNT W/O DIFF 8.9 K/uL (4.2-12.2)
[2018-04-20 18:01] LABS: MEAN CORPUSCULAR HEMOGLOBIN 32.1 pg (27-33)
[2018-04-20 18:09] LABS: INR 1.1; PARTIAL THROMBOPLASTIN TIME 29.9 SECONDS (24.5-39.1); PROTHROMBIN TIME (PATIENT) 11.5 SECONDS (9.5-12.1)
[2018-04-20 18:10] LABS: BLOOD UREA NITROGEN 17 mg/dL (8-23); CREATININE 0.7 mg/dL (0.7-1.2); EST GLOMERULAR FILTRATION RATE > 60 mL/min
[2018-04-20 18:11] LABS: TOTAL PROTEIN 8.5 g/dL (6.6-8.7)
[2018-04-20 18:13] LABS: GLUCOSE,RANDOM 153 mg/dL (74-109)
[2018-04-20 18:16] LABS: ALB/GLOB RATIO 1.2 (1.1-1.8); ALBUMIN 4.7 g/dL (4.0-5.0); ALKALINE PHOSPHATASE 63 U/L (40-129); ALT/SGPT 21 U/L (<41); AST/SGOT 24 U/L (10.0-50.0)
== END 2018-04-20 20:06 | disposition short-term general hospital (02) ==
LOC: ER 17:21
DX: I48.0 Paroxysmal atrial fibrillation (principal); I26.99 Other pulmonary embolism without acute cor pulmonale; R05 Cough; R60.0 Localized edema; E11.9 Type 2 diabetes mellitus without complications; I10 Essential (primary) hypertension; R06.00 Dyspnea, unspecified; Z79.01 Long term (current) use of anticoagulants
CPT/HCPCS: 71275; 80053; 83880; 84484; 85025; 85610; 85730; 93005; 93010; 96365; 96366; 96375; 99285

== ENCOUNTER 2018-12-07 08:03 | Inpatient (IN) | payer MEDICARE, BC ==
[2018-12-07] MEDS ORDERED: IPRATROPIUM/ALBUTEROL (0.5MG/3MG) NEB INH ONE (08:23)
--- NOTE | 2018-12-07 08:36 | Emergency Department Record ---
History of Present Illness - General Chief Complaint: Shortness of breath Stated Complaint: LIV Time Seen by Provider: 12/07/18 08:17 Source: Patient Mode of Arrival: Ambulatory Limitations: No limitations - History of Present Illness Initial Comments: The patient is here due to a 1-2 day hx of cough, congestion, and SOB. The patient denies any CP, fever, or sputum production. The illness did start 3 days ago with red eyes per the patient's . He did not have a Flu shot this year. MD Complaint: Cough, Shortness of breath Onset/Timin -: Days(s) Improves With: Nothing Worsens With: Nothing Associated Symptoms: Cough, Sputum production Treatments Prior to Arrival: None - Related Data Home Medications Medication Instructions Recorded Confirmed Last Taken Insulin Glargine/Lixisenatide 32 units SQ DAILY 12/07/18 12/07/18 12/06/18 [Soliqua 100 Unit-33 Mcg/ml Pen] Previous Rx's Medication Instructions Recorded Polyvinyl Alcohol [Akwa Tears] 1 drop OPTH Q1H PRN btl 03/11/18 Allergies Allergy/AdvReac Type Severity Reaction Status Date / Time codeine AdvReac CONSTIPATIO Verified 12/07/18 08:17 N Travel Screening - Travel/Exposure Within Last 30 Days Have you traveled within the last 30 days?: No - Travel/Exposure Within Last Year Have you traveled outside the [place] in the last year?: No - Additonal Travel Details Have you been exposed to anyone with a communicable illness?: No - Travel Symptoms Symptom Screening: None Review of Systems Constitutional: Reports: Malaise. Denies: Chills, Fever Eyes: Denies: Eye discharge ENT: Reports: Congestion Respiratory: Reports: Cough, Dyspnea. Denies: Hemoptysis Cardiovascular: Denies: Arrhythmia Endocrine: Denies: Fatigue Gastrointestinal: Denies: Diarrhea, Vomiting Genitourinary: Denies: Dysuria Musculoskeletal: Denies: Arthralgia Skin: Denies: Bruising Past Medical History - SOCIAL HISTORY Smoking Status: Never smoker Alcohol Use: Rare Drug Use: None - RESPIRATORY Hx Respiratory Disorders: Yes Hx Bronchitis: Yes Hx Pneumonia: Yes Comment:: allergies - CARDIOVASCULAR Hx Cardio Disorders: Yes Hx Hypertension: Yes Hx Irregular Heartbeat: Yes (A-Fib) - NEURO Hx Neuro Disorders: No - GI Hx GI Disorders: No - Hx Genitourinary Disorders: Yes Hx Prostate Problems: Yes (BPH) - ENDOCRINE Hx Endocrine Disorders: Yes Hx Diabetes: Yes (DM2) - MUSCULOSKELETAL Hx Musculoskeletal Disorders: Yes Hx Gout: Yes - PSYCH Hx Psych Problems: No - HEMATOLOGY/ONCOLOGY Hx Hematology/Oncology Disorders: No Family Medical History Any Significant Family History?: No Hx Cancer: Brother/Sister *Cancer Comment: Colon,Prostate Hx Diabetes: Mother Hx Heart Disease: Father Physical Exam - General General Appearance: Alert, Oriented x3, Cooperative, No acute distress - Head Head exam: Atraumatic, Normocephalic, Normal inspection - Eye Eye exam: Normal appearance, PERRL, EOMI - ENT Throat exam: Normal inspection. negative: Tonsillar erythema, Tonsillar exudate - Neck Neck exam: Normal inspection, Full ROM. negative: Tenderness - Respiratory Respiratory exam: Rhonchi (at the bases.). negative: Normal lung sounds bilaterally, Accessory muscle use, Respiratory distress - Cardiovascular Cardiovascular Exam: Regular rate, Normal rhythm, Normal heart sounds - GI/Abdominal GI/Abdominal exam: Soft, Normal bowel sounds. negative: Tenderness - Extremities Extremities exam: Normal inspection, Full ROM, Normal capillary refill. negative: Pedal edema, Tenderness - Back Back exam: Reports: Normal inspection, Full ROM. Denies: Muscle spasm, Rash noted, Tenderness - Neurological Neurological exam: Alert. negative: Motor sensory deficit Course Vital Signs 12/07/18 08:07 Temperature 98.6 F Pulse Rate 74 Respiratory 20 Rate Blood Pressure 174/83 Pulse Ox 90 L - Reevaluation(s) Reevaluation #1: The patient is doing better and is able to ambulate but his RA biox does drop to 89%. He denies any CP but is mildly SOB with walking and coughing. I did discuss the lab results with him and did recommend hospital admission and he does agree to the plan. I then did discuss the case with Dr. Virk and he does accept the admission. 12/07/18 10:13 Medical Decision Making - Data Complexity MDM Data: Labs Ordered and/or Reviewed, X-Ray Ordered and/or Reviewed, EKG Ordered and/or Reviewed - Lab Data Result diagrams: 12/07/18 08:32 12/07/18 08:32 - EKG Data -: EKG Interpreted by Me EKG: No Acute Changes (Prolonged GA interval with LAFB.) - Radiology Data Radiology results: Report reviewed (CXR: Neg.) Disposition Disposition: Admit Clinical Impression: Viral pneumonitis Disposition: Still a Patient at [facility] Decision to Admit: Admit from ER Decision to Admit Date: 12/07/18 Decision to Admit Time: 10:15 Accepting Physician: Sully Time Discussed w/Accepting Physician: 10:15 Condition: (2) Stable Forms: Patient Portal Access Time of Disposition: 10:15 Quality - Quality Measures Quality Measures: N/A - Blood Pressure Screening View Details: Yes Does Patient Have Any of the Following: No Blood Pressure Classification: Pre-Hypertensive BP Reading Systolic Measurement: 174 Diastolic Measurement: 83 Screening for High Blood Pressure: < Pre-Hypertensive BP, F/U Documented > [ [id number]] Pre-Hypertensive Follow-up Interventions: Referral to alternative/primary care provider.
[2018-12-07 08:48] LABS: HEMATOCRIT 41.8 % (42.0-52.0); MEAN CELL VOLUME 98.1 fl (81-97); MEAN CORPUSCULAR HGB CONC 33.5 g/dl (32-36); MEAN PLATELET VOLUME 10.9 fl (7.4-10.4); PLATELET COUNT 305 K/uL (130-400); RED BLOOD COUNT 4.26 M/uL (4.40-5.70); RED CELL DISTRIBUTION WIDTH 13.4 % (11.5-14.5); WHITE BLOOD COUNT W/O DIFF 11.2 K/uL (4.2-12.2)
[2018-12-07 08:50] LABS: MEAN CORPUSCULAR HEMOGLOBIN 32.8 pg (27-33)
[2018-12-07 08:56] LABS: PLATELET ESTIMATE NORMAL (NORMAL)
[2018-12-07 09:00] LABS: INR 1.1; PARTIAL THROMBOPLASTIN TIME 34.7 SECONDS (24.5-39.1); PROTHROMBIN TIME (PATIENT) 11.3 SECONDS (9.5-12.1)
[2018-12-07 09:01] LABS: BLOOD UREA NITROGEN 17 mg/dL (8-23); CREATININE 0.7 mg/dL (0.7-1.2); EST GLOMERULAR FILTRATION RATE > 60 mL/min
[2018-12-07 09:02] LABS: TOTAL PROTEIN 8.6 g/dL (6.6-8.7)
[2018-12-07 09:04] LABS: GLUCOSE,RANDOM 138 mg/dL (74-109); INFLUENZA A NEGATIVE (NEGATIVE); INFLUENZA B NEGATIVE (NEGATIVE)
[2018-12-07 09:06] LABS: ALB/GLOB RATIO 1.2 (1.1-1.8); ALBUMIN 4.7 g/dL (4.0-5.0); ALT/SGPT 19 U/L (<41); AST/SGOT 20 U/L (10.0-50.0)
[2018-12-07 09:07] LABS: ALKALINE PHOSPHATASE 62 U/L (55-149); CREATINE PHOSPHOKINASE 88 U/L (39-308)
[2018-12-07] MEDS ORDERED: ALBUTEROL SULFATE (0.083%) 2.5 MG/3 ML NEB INH ONE (09:28)
[2018-12-07 09:53] LABS: CKMB 1.7 ng/mL (<6.73)
[2018-12-07] MEDS ORDERED: METHYLPREDNISOLONE PF 125MG/VIAL IVP ONE (10:03)
[2018-12-07] MEDS ORDERED: OSTELTAMIVIR 75 MG CAP PO ONE ×2 (10:04→11:33)
[2018-12-07] MEDS ORDERED: PNEUM 13-VAL/PF 0.5 ML IM ONE (11:32)
[2018-12-07] MEDS ORDERED: POLYVINYL ALCOHOL OPTH OPTH PRN (11:33)
[2018-12-07] MEDS ORDERED: ACETAMINOPHEN 325 MG TAB PO PRN (11:33)
[2018-12-07] MEDS: CEFTRIAXONE 1GM/50ML BAG 1 GM/50 ML BAG IVPB SCH ×2 (13:04→21:42)
[2018-12-07] MEDS: AZITHROMYCIN 500 MG TABLET PO SCH (13:04)
[2018-12-07] MEDS ORDERED: IPRATROPIUM/ALBUTEROL (0.5MG/3MG) NEB INH SCH (14:00)
[2018-12-07] MEDS: IPRATROPIUM/ALBUTEROL (0.5MG/3MG) NEB INH SCH ×3 (15:19→22:14)
[2018-12-07] MEDS: APIXABAN 5MG TABLET PO SCH (21:42)
[2018-12-07] MEDS: METFORMIN 500 MG TABLET PO SCH (21:42)
[2018-12-07] MEDS: METOPROLOL TART 50 MG TABLET PO SCH (21:43)
[2018-12-07] MEDS: OSTELTAMIVIR 75 MG CAP PO SCH (21:43)
[2018-12-07] MEDS: ATORVASTATIN 20 MG TABLET PO SCH (21:43)
[2018-12-07] MEDS: ALLOPURINOL 100 MG TAB PO SCH (21:44)
[2018-12-07] MEDS ORDERED: DIPHENHYDRAMINE HCL 25 MG CAPSULE PO PRN (21:59)
[2018-12-08] MEDS: IPRATROPIUM/ALBUTEROL (0.5MG/3MG) NEB INH SCH ×5 (05:55→21:44)
[2018-12-08 06:31] LABS: HEMATOCRIT 37.9 % (42.0-52.0); HEMOGLOBIN 12.4 gm/dl (14.0-18.0); MEAN CELL VOLUME 97.9 fl (81-97); MEAN CORPUSCULAR HGB CONC 32.7 g/dl (32-36); MEAN PLATELET VOLUME 10.8 fl (7.4-10.4); PLATELET COUNT 282 K/uL (130-400); RED BLOOD COUNT 3.87 M/uL (4.40-5.70); RED CELL DISTRIBUTION WIDTH 13.5 % (11.5-14.5)
[2018-12-08 06:50] LABS: ALB/GLOB RATIO 1.2 (1.1-1.8); ALBUMIN 4.2 g/dL (4.0-5.0); ALKALINE PHOSPHATASE 53 U/L (55-149); ALT/SGPT 15 U/L (<41); AST/SGOT 14 U/L (10.0-50.0); BLOOD UREA NITROGEN 18 mg/dL (8-23); CREATININE 0.6 mg/dL (0.7-1.2); EST GLOMERULAR FILTRATION RATE > 60 mL/min; GLUCOSE,RANDOM 127 mg/dL (74-109); TOTAL PROTEIN 7.6 g/dL (6.6-8.7)
--- NOTE | 2018-12-08 07:26 | RADIOLOGY REPORT ---
EXAM: CHEST, TWO VIEWS HISTORY: COUGH AND DIFFICULTY BREATHING. TECHNIQUE: Two views of the chest were obtained. Comparison: Chest radiograph 04/29/18. FINDINGS: The cardiac silhouette is within normal size limits and is stable from prior. The pulmonary vasculature is not appreciably dilated. No focal pulmonary consolidation. No definable pleural fluid collection or visible pneumothorax. IMPRESSION: NO ACUTE LUNG FINDINGS. JOB NUMBER: [id number] MTDD
--- NOTE | 2018-12-08 09:50 | History and Physical Report ---
DATE: 12/07/2018 CHIEF COMPLAINT: Cough, congestion, short of breath, low pulse ox. HISTORY OF PRESENT ILLNESS: This 73-year-old male presented to the emergency department stating he is short of breath, coughing. He started having difficulties one day prior. He is wheezing. Pulse ox on room air was 89% when talking. The patient was placed on 2L O2 and relieved his symptoms. He was evaluated in the emergency department by Dr. Bridges who stated that he had 1-2 days of cough, congestion, and shortness of breath. He denies chest pain, fever, or sputum production. The illness did start about 3 days ago with red eyes per the patient's . He did not have a flu shot this year. Primary physician is Dr. Galvan. He is an ex-smoker. He smoked from 19 years of age to about 56 years of age, got up to 1.5 packs per day, so I figure he has about a 40- to 66-qasx-glqh history of smoking. PAST MEDICAL HISTORY: Hypercholesterolemia, gouty arthritis, seasonal allergies, diabetes mellitus type 2, hypertension, atrial fibrillation and on Eliquis, COPD. PAST SURGICAL HISTORY: Rhinoplasty and laminectomy L4. MEDICATIONS: 1. Crestor 20 mg at h.s. 2. Allopurinol 300 mg at h.s. 3. Fexofenadine (Elly) 180 mg daily. 4. He is on a combination of insulin glargine/lixisenatide, which is Soliqua, 100/33 and he is taking 32 units a day. 5. He is also on some artificial tears for his eyes. 6. Metoprolol tartrate 100 mg b.i.d. 7. Metformin 1000 mg b.i.d. 8. Fenofibrate 160 mg daily. 9. Captopril/hydrochlorothiazide 25/50 one a day. 10. Eliquis 5 mg b.i.d. ALLERGIES: CODEINE. PSYCHOSOCIAL HISTORY: He is an ex-smoker. He stopped about 18 years ago at 56 years of age. He smoked from 19 to 56 about 1.5 packs per day when he was at the maximum amount of smoking. He has between 40- to 58-ardf-dlgp history. No drug use. Rare alcohol use. He stopped smoking cigarettes in 2000. FAMILY HISTORY: Brother and sister have cancer, colon and prostate. Mother had diabetes and father had heart disease. REVIEW OF SYSTEMS: HEENT: No diplopia, blurry vision, tinnitus. He does have congestion, runny nose, and a cough. Cardiovascular: No chest pain, palpitations, or arrhythmia. Respiratory: Short of breath and a cough and wheezing. Sleep History: Denies any problems sleeping. Gastrointestinal: No nausea, vomiting, diarrhea, black stools, or bloody stools. Genitourinary: No dysuria, hematuria, frequency, or burning on urination. Musculoskeletal: He does have some arthritis in his arms and legs and back. He has had a laminectomy in the past. Neuro/Psych: No tremors, shakes, memory loss, numbness, paresthesias, seizures, headaches. Endocrine: He has diabetes mellitus. No hypothyroidism. Denies any polyuria, polydipsia, heat or cold intolerance, fatigue, weight changes. Integument: No rash, ulcers, change in moles, or yellow skin. PHYSICAL EXAMINATION: VITALS: Height 6 feet 1 inch, weight 236 pounds. Temperature 98.7, pulse ox on room air was 89% and on 2L O2 it is 94%. Blood pressure 129/61, pulse 67, respiratory rate 18-20. HEENT: Pupils are equal, round, and reactive to light and accommodation. Extraocular muscles are intact. Throat is clear. Nose is clear. Tympanic membranes are sanchez. NECK: Supple. No jugular venous distention. No hepatojugular reflux. No carotid bruits. Thyroid is smooth. Lymph nodes are not enlarged. CARDIOVASCULAR: Regular rate and rhythm without murmurs, clicks, rubs, or gallops. RESPIRATORY: There is scant wheezing in all lung simpson. Otherwise percussion is good. No egophony. ABDOMEN: Soft, nontender. No hepatosplenomegaly, no masses, no tenderness. Bowel sounds are active. Negative hernia sites. EXTREMITIES: No pitting edema. No cyanosis, no clubbing. Full range of motion is good. No pedal edema. MUSCULOSKELETAL: He has some soreness in his low back area but no deformities and range of motion is good. BREASTS: Normal male breasts. RECTAL: Exam deferred. GENITALIA: Deferred. NEUROLOGIC: Cranial nerves II-XII intact. No gross defects. Sensation normal, strength normal. Deep tendon reflexes equal bilaterally with Babinski negative. MENTAL STATUS: Alert and oriented x3. SKIN: No seborrheic keratosis. No rashes. IMPRESSION: 1. Acute bronchitis. 2. Acute exacerbation of chronic obstructive pulmonary disease. 3. Viral bronchitis. 4. Hypoxia. 5. Diabetes mellitus type 2. 6. Hypertension. 7. Atrial fibrillation, on Eliquis. PLAN: Rocephin 1 g q.12 h. Azithromycin 500 mg daily. Tamiflu 75 mg b.i.d. Send out a flu swab for PCR. Flu panel was negative but his symptoms seem very compatible with the flu. MTDD
[2018-12-08] MEDS ORDERED: FENOFIBRATE 160 MG PO SCH (10:00)
[2018-12-08] MEDS: LORATADINE 10 MG TABLET PO SCH (10:03)
[2018-12-08] MEDS: CAPTOPRIL 12.5 MG TABLET PO SCH (10:03)
[2018-12-08] MEDS: OSTELTAMIVIR 75 MG CAP PO SCH ×2 (10:03→22:31)
[2018-12-08] MEDS: APIXABAN 5MG TABLET PO SCH ×2 (10:04→22:31)
[2018-12-08] MEDS: HYDROCHLOROTHIAZIDE 12.5 MG CAPSULE PO SCH (10:04)
[2018-12-08] MEDS: AZITHROMYCIN 500 MG TABLET PO SCH (10:04)
[2018-12-08] MEDS: METFORMIN 500 MG TABLET PO SCH ×2 (10:04→22:30)
[2018-12-08] MEDS: METOPROLOL TART 50 MG TABLET PO SCH ×2 (10:04→22:30)
[2018-12-08] MEDS: LEVEMIR FLEXTOUCH 100 UNIT/ML INSULIN PEN SQ SCH (10:08)
[2018-12-08] MEDS: CEFTRIAXONE 1GM/50ML BAG 1 GM/50 ML BAG IVPB SCH ×2 (10:12→22:31)
--- NOTE | 2018-12-08 10:32 | Physician Progress Note ---
Subjective - Date Date of Physician Progress Note: 12/08/18 - Subjective Subjective Comment: 73 year old male recently admitted with Viral pneumonia vs influenza vs bronchitis. Patient resting comfortably in bed at this time, remains on room air. Reports improvement in shortness of breath but continues to note significant weakness and fatigue. Patient denies any chest pain, nausea, vomiting, diarrhea, or abdominal pain at this time. Patient has remained afebrile since admission. Objective - Vital Signs Vital Signs: Vital Signs - Last 24 Hrs Temp Pulse Pulse Resp BP BP Pulse Ox 12/08/18 10:23 62 16 98 12/08/18 09:00 20 12/08/18 08:00 97.5 F L 69 18 149/62 94 L 12/08/18 05:57 61 16 94 L 12/07/18 22:55 16 93 L 12/07/18 22:16 75 16 94 L 12/07/18 21:09 98.1 F 84 20 132/65 93 L 12/07/18 21:00 16 12/07/18 18:01 79 16 95 12/07/18 16:00 97.9 F 72 16 134/63 95 12/07/18 13:43 88 18 95 12/07/18 11:38 88 20 12/07/18 11:18 68 20 114/52 96 12/07/18 11:15 98.7 F 67 18 129/61 94 L - General General Appearance: Alert, Oriented x3, Cooperative, No acute distress Limitations: No limitations - Head Head exam: Atraumatic, Normocephalic, Normal inspection - Eye Eye exam: Normal appearance, PERRL, EOMI - ENT ENT exam: Mucous membranes moist, Normal external ear exam Mouth exam: Normal external inspection Throat exam: Normal inspection. negative: Tonsillar erythema, Tonsillar exudate - Neck Neck exam: Normal inspection, Full ROM. negative: Tenderness - Respiratory Respiratory exam: Wheezes (RUL, NELLA). negative: Normal lung sounds bilaterally , Accessory muscle use, Respiratory distress - Cardiovascular Cardiovascular Exam: Regular rate, Normal rhythm, Normal heart sounds Peripheral Pulses: 2+: Radial (R), Radial (L), Dorsalis Pedis (R), Dorsalis Pedis (L) - GI/Abdominal GI/Abdominal exam: Soft, Normal bowel sounds. negative: Tenderness - Rectal Rectal exam: Deferred - exam: Deferred - Extremities Extremities exam: Normal inspection, Full ROM, Normal capillary refill. negative: Pedal edema, Tenderness - Back Back exam: Reports: Normal inspection, Full ROM. Denies: Muscle spasm, Rash noted, Tenderness - Neurological Neurological exam: Alert, Oriented X3. negative: Motor sensory deficit - Psychiatric Psychiatric exam: Normal affect, Normal mood - Skin Skin exam: Pallor Assessment and Plan - Assessment and Plan (1) Bronchitis Current Visit: Yes Status: Acute Base Code: J40 - BRONCHITIS, NOT SPECIFIED ACUTE OR CHRONIC Comment: 12/08/18: Initial ED workup negative for pneumonia. -Chest x-ray negative -WBC 8.0, afebrile -Zithromax 500mg PO daily -Rocephin 1 gm IVP BID -Duoneb q4h prn -Oxygen prn to keep pulse ox >92% -school lunch monitor (2) Influenza Current Visit: Yes Status: Acute Base Code: J11.1 - FLU DUE TO UNIDENTIFIED INFLUENZA VIRUS W OTH RESP MANIFEST Comment: 12/08/18: Initial influenza swabs negative -Influenza PCR sent out, results pending -Symptoms consistent with influenza despite negative testing -Will continue with Tamiflu 75mg BID at this time -Encouraged PO fluid intake -Acetaminophen prn fever (3) Diabetes mellitus, type II Current Visit: No Status: Acute Base Code: E11.9 - TYPE 2 DIABETES MELLITUS WITHOUT COMPLICATIONS Comment: 12/08/18: - Continue home doses of Levimir and Metformin 1000mg BID. - accuchecks AcHs - ADA diabetic diet (4) DVT prophylaxis Current Visit: No Status: Acute Base Code: [id number] - Comment: 12/08/18: High risk due to age, hospitalization, and decrased mobility at this time - Continue home dose of Eliquis 5mg BID for afib - Encourage ambulation in the room (5) Full code status Current Visit: No Status: Acute Base Code: Z78.9 - OTHER SPECIFIED HEALTH STATUS Comment: 12/08/18: Full code status Results - Labs Result Diagrams: 12/08/18 06:20 12/08/18 06:20 Labs Last 24 Hours: Laboratory Results - last 24 hr 12/07/18 12/07/18 12/07/18 08:26 11:30 13:00 WBC RBC Hgb Hct MCV MCH MCHC RDW Plt Count MPV Gran % Neutrophils % Band Neutrophils % Lymphocytes % Monocytes % Eosinophils % Basophils % Lymphocytes Monocytes Basophils Eosinophil Count Sodium Potassium Chloride Carbon Dioxide Anion Gap BUN Creatinine Estimated GFR POC Glucose 167 H Random Glucose Calcium Total Bilirubin AST ALT Alkaline Phosphatase Troponin T Total Protein Albumin Globulin Albumin/Globulin Ratio Procalcitonin 0.033 Specimen Type Nasopharyngeal Nasal Influenza A PCR Not detected Nasal Influenza B PCR Not detected 12/07/18 12/07/18 12/08/18 16:00 17:00 00:09 WBC RBC Hgb Hct MCV MCH MCHC RDW Plt Count MPV Gran % Neutrophils % Band Neutrophils % Lymphocytes % Monocytes % Eosinophils % Basophils % Lymphocytes Monocytes Basophils Eosinophil Count Sodium Potassium Chloride Carbon Dioxide Anion Gap BUN Creatinine Estimated GFR POC Glucose 186 H 194 H Random Glucose Calcium Total Bilirubin AST ALT Alkaline Phosphatase Troponin T < 0.010 Total Protein Albumin Globulin Albumin/Globulin Ratio Procalcitonin Specimen Type Nasal Influenza A PCR Nasal Influenza B PCR 12/08/18 12/08/18 06:20 06:20 WBC 8.0 RBC 3.87 L Hgb 12.4 L Hct 37.9 L MCV 97.9 H MCH 32.0 MCHC 32.7 RDW 13.5 Plt Count 282 MPV 10.8 H Gran % 54.0 Neutrophils % 54.0 Band Neutrophils % 0.0 Lymphocytes % 30.0 Monocytes % 16.0 H Eosinophils % Not Reportable Basophils % Not Reportable Lymphocytes 30.0 Monocytes 16.0 H Basophils 0.0 Eosinophil Count 0.0 Sodium 140 Potassium 3.6 Chloride 101 Carbon Dioxide 25.0 Anion Gap 14.0 BUN 18 Creatinine 0.6 L Estimated GFR > 60 POC Glucose Random Glucose 127 H Calcium 9.5 Total Bilirubin 0.30 AST 14 ALT 15 Alkaline Phosphatase 53 L Troponin T Total Protein 7.6 Albumin 4.2 Globulin 3.4 Albumin/Globulin Ratio 1.2 Procalcitonin Specimen Type Nasal Influenza A PCR Nasal Influenza B PCR DVT/PE Assessment - Risk for VTE Risk for VTE: Yes Risk Level: High Risk Assessment Date: 12/08/18 Risk Assessment Time: 10:39 VTE Orders Placed or Will Be Placed: No VTE Reason for No Prophylaxis: Contraindicated (currently on Eliquis 5mg BID) - Active Medicaitons Current Medications: Current Medications Acetaminophen (Tylenol 325mg) 650 mg PO Q6H PRN PRN Reason: PAIN - MILD(1-4)/FEVER Albuterol/Ipratropium (Duoneb) 3 ml INH RESP.Q4H.WA [facility] Last Admin: 12/08/18 10:22 Dose: 3 ml Allopurinol (Zyloprim) 300 mg PO QHS [facility] Last Admin: 12/07/18 21:44 Dose: 300 mg Apixaban (Eliquis) 5 mg PO BID [facility] Last Admin: 12/08/18 10:04 Dose: 5 mg Artificial Tears (Akwa Tears) 1 drop OPTH Q1H PRN PRN Reason: Dry Eye Atorvastatin Calcium (Lipitor) 80 mg PO QHS [facility] Last Admin: 12/07/18 21:43 Dose: 80 mg Azithromycin (Zithromax) 500 mg PO DAILY [facility] Last Admin: 12/08/18 10:04 Dose: 500 mg Captopril (Capoten) 25 mg PO DAILY [facility] Last Admin: 12/08/18 10:03 Dose: 25 mg Diphenhydramine HCl (Benadryl Capsule) 25 mg PO Q6H PRN PRN Reason: INSOMNIA Last Admin: 12/07/18 22:04 Dose: 25 mg Hydrochlorothiazide (Hctz 12.5mg) 12.5 mg PO DAILY [facility] Last Admin: 12/08/18 10:04 Dose: 12.5 mg CEFTRIAXONE 1GM/50ML BAG (Ceftriaxone 1 Gm-D5w Bag) 1 gm in 50 mls @ 100 mls/ hr IVPB Q12HR [facility] Last Admin: 12/08/18 10:12 Dose: 100 mls/hr Insulin Detemir (Levemir Flextouch) 32 unit SQ DAILY [facility] Last Admin: 12/08/18 10:08 Dose: 32 unit Loratadine (Claritin) 10 mg PO DAILY [facility] Last Admin: 12/08/18 10:03 Dose: 10 mg Metformin HCl (Glucophage Ir) 1,000 mg PO BID [facility] Last Admin: 12/08/18 10:04 Dose: 1,000 mg Metoprolol Tartrate (Lopressor) 100 mg PO BID [facility] Last Admin: 12/08/18 10:04 Dose: 100 mg Oseltamivir Phosphate (Tamiflu) 75 mg PO BID [facility] Last Admin: 12/08/18 10:03 Dose: 75 mg AMI Plan - Labs Result Diagrams: 12/08/18 06:20 12/08/18 06:20
[2018-12-08] MEDS: ATORVASTATIN 20 MG TABLET PO SCH (22:29)
[2018-12-08] MEDS: ALLOPURINOL 100 MG TAB PO SCH (22:30)
[2018-12-09 06:53] LABS: HEMATOCRIT 38.3 % (42.0-52.0); HEMOGLOBIN 12.4 gm/dl (14.0-18.0); MEAN CELL VOLUME 99.5 fl (81-97); MEAN CORPUSCULAR HEMOGLOBIN 32.2 pg (27-33); MEAN CORPUSCULAR HGB CONC 32.4 g/dl (32-36); PLATELET COUNT 275 K/uL (130-400); RED BLOOD COUNT 3.85 M/uL (4.40-5.70); RED CELL DISTRIBUTION WIDTH 13.7 % (11.5-14.5); WHITE BLOOD COUNT W/O DIFF 7.4 K/uL (4.2-12.2)
[2018-12-09 07:03] LABS: BLOOD UREA NITROGEN 23 mg/dL (8-23); CREATININE 0.7 mg/dL (0.7-1.2); EST GLOMERULAR FILTRATION RATE > 60 mL/min; GLUCOSE,RANDOM 111 mg/dL (74-109)
[2018-12-09] MEDS: IPRATROPIUM/ALBUTEROL (0.5MG/3MG) NEB INH SCH ×2 (09:04→09:07)
[2018-12-09] MEDS: CAPTOPRIL 12.5 MG TABLET PO SCH (09:33)
[2018-12-09] MEDS: METOPROLOL TART 50 MG TABLET PO SCH (09:33)
[2018-12-09] MEDS: LORATADINE 10 MG TABLET PO SCH (09:33)
[2018-12-09] MEDS: APIXABAN 5MG TABLET PO SCH (09:33)
[2018-12-09] MEDS: AZITHROMYCIN 500 MG TABLET PO SCH (09:33)
[2018-12-09] MEDS: METFORMIN 500 MG TABLET PO SCH (09:33)
[2018-12-09] MEDS: HYDROCHLOROTHIAZIDE 12.5 MG CAPSULE PO SCH (09:33)
[2018-12-09] MEDS: CEFTRIAXONE 1GM/50ML BAG 1 GM/50 ML BAG IVPB SCH (09:35)
[2018-12-09] MEDS: LEVEMIR FLEXTOUCH 100 UNIT/ML INSULIN PEN SQ SCH (09:40)
--- NOTE | 2018-12-09 09:47 | Discharge Summary ---
Providers Discharge Summary Date: 12/09/18 Date of admission: 12/07/18 11:06 Expected Date of Discharge: 12/09/18 Attending physician: Peewee Virk Primary care physician: MALGORZATA HERNANDEZ D.O. Physical Exam - Vital Signs Vital Signs: Vital Signs - Last 24 Hrs Temp Pulse Pulse Resp BP Pulse Ox 12/09/18 09:08 65 18 99 12/09/18 08:15 18 12/09/18 07:01 98.1 F 64 20 122/69 95 12/08/18 21:46 78 14 96 12/08/18 21:03 98.0 F 65 20 132/64 97 12/08/18 21:00 16 12/08/18 18:28 67 18 95 12/08/18 16:00 97.5 F L 67 18 132/70 93 L 12/08/18 13:17 61 16 99 12/08/18 12:00 97.8 F 70 18 116/60 93 L 12/08/18 10:23 62 16 98 - General General Appearance: Alert, Oriented x3, Cooperative, No acute distress Limitations: No limitations - Head Head exam: Atraumatic, Normocephalic, Normal inspection - Eye Eye exam: Normal appearance, PERRL, EOMI - ENT ENT exam: Mucous membranes moist, Normal external ear exam Mouth exam: Normal external inspection Throat exam: Normal inspection. negative: Tonsillar erythema, Tonsillar exudate - Neck Neck exam: Normal inspection, Full ROM. negative: Tenderness - Respiratory Respiratory exam: Normal lung sounds bilaterally. negative: Accessory muscle use, Rales, Respiratory distress - Cardiovascular Cardiovascular Exam: Regular rate, Normal rhythm, Normal heart sounds Peripheral Pulses: 2+: Radial (R), Radial (L), Dorsalis Pedis (R), Dorsalis Pedis (L) - GI/Abdominal GI/Abdominal exam: Soft, Normal bowel sounds. negative: Tenderness - Rectal Rectal exam: Deferred - exam: Deferred - Extremities Extremities exam: Normal inspection, Full ROM, Normal capillary refill. negative: Pedal edema, Tenderness - Back Back exam: Reports: Normal inspection, Full ROM. Denies: Muscle spasm, Rash noted, Tenderness - Neurological Neurological exam: Alert, Normal gait, Oriented X3. negative: Motor sensory deficit - Psychiatric Psychiatric exam: Normal affect, Normal mood - Skin Skin exam: Pallor Hospitalization - Hospitalization Admission Diagnosis: 1. Acute Viral Pneumonia with hypoxia. - Problem List/Discharge Diagnosis (1) Bronchitis Current Visit: Yes Status: Acute Base Code: J40 - BRONCHITIS, NOT SPECIFIED ACUTE OR CHRONIC Comment: 12/09/18: Initial ED workup negative for pneumonia. -Chest x-ray negative for pneumonia -WBC 7.4, has remained afebrile -Zithromax 500mg PO daily, to be dc on Zithromax -Rocephin 1 gm IVP BID -Duoneb q4h prn -Has remained on room air for 24 hours -quality assurance monitor final (2) Influenza Current Visit: Yes Status: Acute Base Code: J11.1 - FLU DUE TO UNIDENTIFIED INFLUENZA VIRUS W OTH RESP MANIFEST Comment: 12/09/18: Initial influenza swabs negative -Influenza PCR negative -Will discontinue with Tamiflu 75mg BID at this time -Encouraged PO fluid intake -Acetaminophen prn fever (3) Diabetes mellitus, type II Current Visit: No Status: Acute Base Code: E11.9 - TYPE 2 DIABETES MELLITUS WITHOUT COMPLICATIONS Comment: 12/09/18: - Continue home doses of Levimir and Metformin 1000mg BID. - accuchecks AcHs - ADA diabetic diet (4) DVT prophylaxis Current Visit: No Status: Acute Base Code: [id number] - Comment: 12/09/18: High risk due to age, hospitalization, and decrased mobility at this time - Continue home dose of Eliquis 5mg BID for afib - Encourage ambulation in the room (5) Full code status Current Visit: No Status: Acute Base Code: Z78.9 - OTHER SPECIFIED HEALTH STATUS Comment: 12/09/18: Full code status - Hospitalization Course Disposition: Home, Self-Care Hospital Course: 73 year old male A&O x 4, resting comfortably in bed. No respiratory distress at this time, patient has remained on room air overnight. Influenza PCR came back negative. Will continue with Zithromax PO upon dc for bronchitis. Procedures: Imaging and X-Rays 12/07/18 08:23 CHEST 2 VIEWS [RAD] Stat Cardiology Procedures 12/07/18 08:23 Shift Stacker NOW EKG NOW 12/07/18 11:33 Shift Stacker .Continuous Abnormal Labs: Abnormal Lab Results 12/07/18 12/07/18 12/07/18 Range/Units 08:32 08:32 08:32 RBC 4.26 L (4.40-5.70) M/uL Hgb (14.0-18.0) gm/dl Hct 41.8 L (42.0-52.0) % MCV 98.1 H (81-97) fl MPV 10.9 H (7.4-10.4) fl Monocytes % (0-9) % Lymphocytes 13.0 L (16-45) % Monocytes (0-9) % Creatinine (0.7-1.2) mg/dL POC Glucose (70-110) mg/dL Random Glucose 138 H (74-109) mg/dL Alkaline Phosphatase (55-149) U/L NT-Pro-B Natriuret Pep 411.90 H (<125) pg/mL 12/07/18 12/07/18 12/08/18 Range/Units 11:30 17:00 00:09 RBC (4.40-5.70) M/uL Hgb (14.0-18.0) gm/dl Hct (42.0-52.0) % MCV (81-97) fl MPV (7.4-10.4) fl Monocytes % (0-9) % Lymphocytes (16-45) % Monocytes (0-9) % Creatinine (0.7-1.2) mg/dL POC Glucose 167 H 186 H 194 H (70-110) mg/dL Random Glucose (74-109) mg/dL Alkaline Phosphatase (55-149) U/L NT-Pro-B Natriuret Pep (<125) pg/mL 12/08/18 12/08/18 12/08/18 Range/Units 06:20 06:20 11:30 RBC 3.87 L (4.40-5.70) M/uL Hgb 12.4 L (14.0-18.0) gm/dl Hct 37.9 L (42.0-52.0) % MCV 97.9 H (81-97) fl MPV 10.8 H (7.4-10.4) fl Monocytes % 16.0 H (0-9) % Lymphocytes (16-45) % Monocytes 16.0 H (0-9) % Creatinine 0.6 L (0.7-1.2) mg/dL POC Glucose 141 H (70-110) mg/dL Random Glucose 127 H (74-109) mg/dL Alkaline Phosphatase 53 L (55-149) U/L NT-Pro-B Natriuret Pep (<125) pg/mL 12/08/18 12/08/18 12/09/18 Range/Units 17:00 22:00 06:25 RBC 3.85 L (4.40-5.70) M/uL Hgb 12.4 L (14.0-18.0) gm/dl Hct 38.3 L (42.0-52.0) % MCV 99.5 H (81-97) fl MPV 11.0 H (7.4-10.4) fl Monocytes % (0-9) % Lymphocytes (16-45) % Monocytes 14.0 H (0-9) % Creatinine (0.7-1.2) mg/dL POC Glucose 131 H 252 H (70-110) mg/dL Random Glucose (74-109) mg/dL Alkaline Phosphatase (55-149) U/L NT-Pro-B Natriuret Pep (<125) pg/mL 12/09/18 Range/Units 06:25 RBC (4.40-5.70) M/uL Hgb (14.0-18.0) gm/dl Hct (42.0-52.0) % MCV (81-97) fl MPV (7.4-10.4) fl Monocytes % (0-9) % Lymphocytes (16-45) % Monocytes (0-9) % Creatinine (0.7-1.2) mg/dL POC Glucose (70-110) mg/dL Random Glucose 111 H (74-109) mg/dL Alkaline Phosphatase (55-149) U/L NT-Pro-B Natriuret Pep (<125) pg/mL Condition at Discharge: (2) Stable VTE Discharge VTE Reason For No Overlap Therapy: Not Indicated Discharge Medications - Discharge Medications Prescriptions: Azithromycin [Zithromax] 500 mg PO DAILY #2 tab Home Medications: Ambulatory Orders Allopurinol 300 mg PO QHS 08/21/16 [Last Taken 12/07/18] Apixaban [Eliquis] 5 mg PO BID 08/21/16 [Last Taken 12/07/18] Captopril/Hydrochlorothiazide [Captopril-Hctz 25-15 mg Tablet] 1 tab PO DAILY [Last Taken 12/07/18] Fenofibrate 160 mg PO DAILY 08/21/16 [Last Taken 12/07/18] Fexofenadine HCl [Elly Allergy] 180 mg PO DAILY 08/21/16 [Last Taken 12/06/18 ] Metformin HCl 1,000 mg PO BID 08/21/16 [Last Taken 12/07/18] Metoprolol Tartrate 100 mg PO BID 08/21/16 [Last Taken 12/07/18] Rosuvastatin Calcium [Crestor] 20 mg PO QHS 08/21/16 [Last Taken 12/06/18] Polyvinyl Alcohol [Akwa Tears] 1 drop OPTH Q1H PRN btl 03/11/18 [Last Taken ] Insulin Glargine/Lixisenatide [Soliqua 100 Unit-33 Mcg/ml Pen] 32 units SQ DAILY 12/07/18 [Last Taken 12/06/18] Azithromycin [Zithromax] 500 mg PO DAILY #2 tab 12/09/18 [Last Taken Unknown] Discharge Plan - Discharge Instructions Activity at Discharge: Increase Activity as Tolerated Diet at Discharge: Diabetic Diet Additional Instructions: -Start taking the antibiotics (Zithromax) tomorrow, you have already received a dose today -Follow up with Dr. Espinoza within 1-2 weeks of discharge Quality Measures - Quality Measures Quality Measures: Atrial Fibrillation & Atrial Flutter: Chronic Anticoagulation Therapy, Advance Directives, Documentation of Current Medications in Medical Record, Elder Maltreatment Screen and Follow-Up Plan, Screening for High Blood Pressure and F/U Documented - Current Medications Quality Measure: Measure #130: Documentation of Current Medications Documentation of Current Medications: <Current Medications Documented/Reviewed> [G8427] - Blood Pressure Screening Quality Measure: Screening for High Blood Pressure and Follow-Up Documented Does Patient Have Any of the Following: Active Dx of HTN Blood Pressure Classification: Normal BP Reading Systolic Measurement: 114 Diastolic Measurement: 52 Screening for High Blood Pressure: Patient Exclusion, Hx of HTN [G9744] - Atrial Fibrillation and Atrial Flutter Quality Measure: Atrial Fibrillation & Atrial Flutter: Chronic Anticoagulation Therapy Does Patient Have Any of the Following: No CHADS2 Risk Stratification: Hypertension, Diabetes Mellitus Risk Stratification Summary: One or more high risk factors OR more than one moderate risk factor exists. [G8972] Anticoagulation Therapy: <Oral anticoagulant Prescribed> [G8967] - Advance Directives Quality Measure: Measure #47: Care Plan Advance Directives Established: No Advance Directives Information Provided To Patient: Yes Advance Directives on File: No Living Will: No Power of Teacher Dancing: Yes Power of Teacher Dancing Name: SIMÓN HSU Advance Care Planning: <Care Plan/Decision Maker Documented; Discussed & Documented> [[id number]] - Elder Abuse Suspicion Index Screening: Elder Abuse Suspicion Index Screening Rely on people for bathing, dressing, shopping, banking, etc: No Prevented from getting food, clothes, medication, etc: No Made to feel shamed or threatened by someone: No Forced to sign papers or use money against will: No Feel afraid, touched in ways not wanted or hurt physically: No Poor eye contact, withdrawn, malnourished, cuts or bruises: No Screening Result: Negative result EASI Reference Information: Caitlyn BARGER, Michael C, Sandhya D, Annelise Perla.Development and validation of a tool to assist physicians identification of elder abuse: The Elder Abuse Suspicion Index (EASI ). Journal of Elder Abuse and Neglect, 2008; 20 (3): 276-300. - Elder Maltreatment Screen Quality Measures: Elder Maltreatment Screen and Follow-Up Plan Elder Maltreatment Screen: <Negative, No Follow-Up Plan Required> [G8734]
== END 2018-12-09 12:30 | disposition home or self-care (01) | DRG 194 ==
LOC: ER 08:03 → MEDSURG 11:06
PROVIDERS: ADMIT Emergency Medicine; ATTEND Emergency Medicine
DX: J12.9 Viral pneumonia, unspecified (principal); J44.1 Chronic obstructive pulmonary disease with (acute) exacerbation; J44.0 Chronic obstructive pulmonary disease with (acute) lower respiratory infection; J11.1 Influenza due to unidentified influenza virus with other respiratory manifestations; J20.9 Acute bronchitis, unspecified; R09.02 Hypoxemia; R05 Cough; I10 Essential (primary) hypertension; I48.91 Unspecified atrial fibrillation; Z79.01 Long term (current) use of anticoagulants; E11.9 Type 2 diabetes mellitus without complications; Z79.4 Long term (current) use of insulin; N40.0 Benign prostatic hyperplasia without lower urinary tract symptoms; M10.9 Gout, unspecified
CPT/HCPCS: 36416; 71046; 80048; 80053; 82550; 82553; 82948; 83880; 84145; 84484; 85027; 85610; 85730; 87400; 90670; 90686; 93005; 93010; 94640; 94760; 94761; 99223; 99233; 99239; J0696; J2930; J7613

== ENCOUNTER 2019-11-18 11:19 | Day surgery (SDC) | payer BC, MEDICARE ==
[2019-11-18] MEDS ORDERED: PROPOFOL 10 MG/ML VIAL IV ONE (11:20)
[2019-11-18] MEDS ORDERED: LIDOCAINE 2% MDV (20MG/ML) 20ML VIAL IV ONE (11:20)
--- NOTE | 2019-11-19 10:00 | Operative Note ---
OPERATION: COLONOSCOPY with cold forceps polypectomy x1. PREOPERATIVE DIAGNOSIS: Personal history of colon polyps. POSTOPERATIVE DIAGNOSES: 1. Sigmoid diverticulosis. 2. Descending colon polyp. ESTIMATED BLOOD LOSS: Minimum. SPECIMENS: Descending colon. COMPLICATIONS: None apparent. PROCEDURE: After informed consent was obtained from the patient, he was placed in the left lateral decubitus position in the endoscopy suite, sedated and monitored by the department of anesthesia. Digital rectal examination was unremarkable. A well-lubricated [id number] colonoscope was inserted into the rectum and advanced to the cecum. Preparation quality was good. The cecum, cecal bulb, ileocecal valve, appendiceal orifice, ascending colon, and transverse colon were unremarkable. There was a diminutive descending colon polyp identified removed with a cold forceps. The remainder of the descending colon was unrevealing. The sigmoid colon revealed scattered diverticula. Forward and J-turn views of the rectum and anorectum were unrevealing. The endoscope was straightened, the rectal ampulla deflated, and the endoscope was removed. RECOMMENDATIONS: The patient should follow a high-fiber diet. Recommend a repeat exam in 5 years. As always, thank you for allowing me to participate in the healthcare of your patients. CHANELL
== END 2019-11-18 12:50 | disposition home or self-care (01) ==
LOC: HOP 11:19
PROVIDERS: ATTEND Internal Medicine Gastroenterology
DX: Z12.11 Encounter for screening for malignant neoplasm of colon (principal); Z86.010 Personal history of colon polyps; K63.5 Polyp of colon; K57.30 Diverticulosis of large intestine without perforation or abscess without bleeding; I10 Essential (primary) hypertension; I48.91 Unspecified atrial fibrillation; E78.5 Hyperlipidemia, unspecified; M10.9 Gout, unspecified